=== PATIENT | male | born 1975 | race Caucasian/White ===

== ENCOUNTER → 2017-12-10 | Outpatient (CLI) | payer OTHER ==
[~2017-12-10] MED LIST: IOPAMIDOL 370 MG/ML 200 ML INFUS..BTL INJ ONE; SODIUM CHLORIDE 0.9% 50ML 50 ML ONE
[2017-12-10 15:53] LABS: BLOOD UREA NITROGEN 18 mg/dL (7-26); BUN/CREATININE RATIO 15 (6-25); CREATININE, SERUM 1.21 mg/dL (0.72-1.25); EST GLOMERULAR FILTRATION RATE > 60 ML/MIN (60-)
--- NOTE | 2017-12-10 19:21 | Diagnostic Imaging Report ---
History:Stroke in 05. Right shoulder and back pain. No injury, Comparison studies:MRA neck and head 07/02/2014 Technique: Axial images were obtained from the thoracic inlet. Coronal and sagittal images reconstructed from the axial data. Intravenous contrast: 100 cc of Omnipaque 300. Findings: Percentage of stenosis will be based on the NASCET criteria Aortic arch and major vessels: Patent. No abnormalities. Common carotid arteries: Patent. No abnormalities. Right internal carotid artery: Patent. No stenosis.Tortuosity at the distal cervical segment . Left internal carotid artery: Patent. No stenosis. Tortuosity at the mid cervical segment with 6 mm anterior and medial outpouching, consistent with saccular aneurysm. . Right vertebral artery: Patent. No abnormalities. Left vertebral artery: Patent. No abnormalities. Basilar artery: Patent. No abnormalities. Posterior cerebral arteries: Patent. No abnormalities. Anatomical variants: Acom: Patent . Pcoms: Patent right. Not visualized left. Vertebral arteries: Col-dominant IMPRESSION: Cervical CTA: 1. No stenosis. The previously visualized irregularity at the right distal cervical vertebral artery is not seen. 2. 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 Intracranial CTA: 1. No abnormalities Signed by: DR Lev Angelo M.D. on 12/10/2017 7:17 PM
== END ==
LOC: CT 15:05
PROVIDERS: ATTEND Family Medicine
DX: M25.511 Pain in right shoulder (principal); M54.2 Cervicalgia; G44.52 New daily persistent headache (NDPH); Z86.79 Personal history of other diseases of the circulatory system
CPT/HCPCS: 36415; 70496; 70498; 82565; 84520; Q9967

== ENCOUNTER → 2020-06-07 | Outpatient (CLI) | payer OTHER | LOC: US 06:54 | PROVIDERS: ATTEND Family Medicine | DX: R19.09 Other intra-abdominal and pelvic swelling, mass and lump (principal); R10.31 Right lower quadrant pain | CPT/HCPCS: 76700; 76882 ==